=== PATIENT | female | born 1955 | race Two or more races ===

== ENCOUNTER 2024-07-16 15:02 | Emergency (ER) | payer OTHER ==
[~2024-07-16] VITALS: Ht 160 cm; Wt 82.0 kg
--- NOTE | 2024-07-16 16:12 | ED.PDOC ---
SOB-HPI HPI Comments 69 year old female accompanied by son presents to the ED with chief complaint of SOB. Patient reports that she has been experiencing a cough with associated yellow phlegm production, SOB, and chest tightness for the past 15 days along with a fever that lasted about a week. Patient relays that she has history of asthma. Patient denies any dizziness, headache, fever, chills, N/V, dysuria, hematuria, or hemoptysis. Chief Complaint: Shortness of Breath Time Seen by MD: 16:08 Primary Care Provider: none Reviewed notes: Nurses Notes, Medications, Allergies Information Source: Patient, Relative Mode of Arrival: Ambulatory Severity: Moderate Timing: Weeks Duration: Since onset Context: At Rest PE Risk Factors: None History of: Asthma Prehospital treatment: None Modifying Factors: Nothing Associated Signs and Symptoms: Fever, Cough, Chest Pain Quality: Tightness Radiation: No Radiation Location: Substernal If cough with SOB: Productive, Yellow Past Medical History PAST MEDICAL HISTORY: Asthma, CKF, DM, Gout, High Lipids, HTN Surgical History: Tubal Ligation REGULATORY SUBMISSIONS SPECIALIST History: Denies all REGULATORY SUBMISSIONS SPECIALIST Hx Family History Family History: Reviewed,noncontributory to illness Social History Smoker: Non-Smoker Alcohol: Denies ETOH Use Drugs: Denies Drug Use Lives In: Home Constitutional: reports: fever; denies: chills, diaphoresis, fatigue, malaise, sweats, weakness, others EENTM: denies: blurred vision, double vision, ear bleeding, ear discharge, ear drainage, ear pain, ear ringing, eye pain, eye redness, hearing loss, mouth pain, mouth swelling, nasal discharge, nose bleeding, nose congestion, nose pain, photophobia, tearing, throat pain, throat swelling, voice changes, others Respiratory: reports: cough, shortness of breath; denies: hemoptysis, orthopnea, SOB at rest, SOB with excertion, stridor, wheezing, others Cardiovascular: reports: chest pain; denies: dizzy spells, diaphoresis, Dyspnea on exertion, edema, irregular heart beat, left arm pain, lightheadedness, palpitations, PND, syncope, others Gastrointestinal: denies: abdomen distended, abdominal pain, blood streaked bowels, constipated, diarrhea, dysphagia, difficulty swallowing, hematemesis, melena, nausea, poor appetite, poor fluid intake, rectal bleeding, rectal pain, vomiting, others Genitourinary: denies: abnormal vagina bleeding, burning, dyspareunia, dysuria, flank pain, frequency, hematuria, incontinence, pain, , vagina discharge, urgency, others Neurological: denies: dizziness, fainting, headache, left sided numbness, left sided weakness, numbness, paresthesia, pre-existing deficit, right sided numbness, right sided weakness, seizure, speech problems, tingling, tremors, weakness, others Musculoskeletal: denies: back pain, gout, joint pain, joint swelling, muscle pain, muscle stiffness, neck pain, others Integumetry: denies: bruises, change in color, change in hair/nails, dryness, laceration, lesions, lumps, rash, wounds, others Allergic/Immunocompromised: denies: Difficulty Healing, Frequent Infections, Hives, Itching, others Hematologic/Lymphatic: denies: anemia, blood clots, easy bleeding, easy bruisin g, swollen glands, others Endocrine: denies: excessive hunger, excessive sweating, excessive thirst, excessive urination, flushing, intolerance to cold, intolerance to heat, unexplained weight gain, unexplained weight loss, others Psychiatric: denies: anxiety, bipolar disorder, depression, hopeless, panic disorder, schizophrenia, sleepless, suicidal, others All Other Systems: Reviewed and Negative Physical Exam General Appearance: Moderate Distress HEENT: Normal ENT Inspection, Pharynx Normal, TMs Normal Neck: Full Range of Motion, Non-Tender, Normal, Normal Inspection Respiratory: Accessory Muscle Use, Chest Non-Tender, Decreased Breath Sounds, Respiratory Distress, Wheezing Cardiovascular: No Edema, No JVD, No Murmur, No Gallop, Normal Peripheral Pulses, Regular Rate/Rhythm Breast Exam: Deferred Gastrointestinal: No Organomegaly, Non Tender, No Pulsatile Mass, Normal Bowel Sounds, Soft Genitalia: Deferred Pelvic: Deferred Rectal: Deferred Extremities: No calf tenderness, Normal capillary refill, Normal inspection, Normal range of motion, Non-tender, No pedal edema Musculoskeletal : Apperance: Normal Neurologic: Alert, operations welder II-XII nml as Tested, No Motor Deficits, Normal Affect, Normal Mood, No Sensory Deficits Cerebellar Function: Normal Reflexes: Normal Skin: Dry, Normal Color, Warm Lymphatic: No Adenopathy Was a procedure done? Was a procedure done?: No Differential Dx Differential Diagnosis: Asthma, Bronchitis, CHF, COPD, Pneumonia X-Ray, Labs, Meds, VS Vital Signs Date Time Temp Pulse Resp B/P (MAP) Pulse Ox O2 Delivery O2 Flow Rate FiO2 07/16/24 16:46 16 95 Room Air* 0 21 07/16/24 16:45 70 20 98 Room Air* 0 21 07/16/24 16:45 98.2 98 18 117/70 (86) 98 98.2 07/16/24 15:23 98.2 100 20 151/76 (101) 95 98.2 07/16/24 15:13 20 95 Room Air* 0 21 Lab Test 07/16/24 17:39 07/16/24 16:36 Range/Units Influenza Type A Antigen Negative Negative Influenza Type B Antigen Negative Negative SARS-CoV-2 Antigen (Rapid) Negative NEGATIVE White Blood Count 10.3 4.4-10.8 10^3/uL Red Blood Count 5.31 H 4.0-5.20 10^6/uL Hemoglobin 13.9 12.2-16.2 g/dL Hematocrit 43.3 36.0-46.0 % Mean Corpuscular Volume 81.5 80.0-100.0 fL Mean Corpuscular Hemoglobin 26.2 L 28.0-32.0 pg Mean Corpuscular Hemoglobin Concent 32.1 32.0-36.0 g/dL Red Cell Distribution Width 16.5 H 11.8-14.3 % Platelet Count 291 140-450 10^3/uL Mean Platelet Volume 9.0 6.9-10.8 fL Neutrophils (%) (Auto) 73.9 37.0-80.0 % Lymphocytes (%) (Auto) 17.0 10.0-50.0 % Monocytes (%) (Auto) 5.3 0.0-12.0 % Eosinophils (%) (Auto) 3.1 0.0-7.0 % Basophils (%) (Auto) 0.7 0.0-2.0 % Neutrophils # (Auto) 7.6 1.6-8.6 10 ^3/uL Lymphocytes # (Auto) 1.7 0.4-5.4 10 ^3/uL Monocytes # (Auto) 0.5 0-1.3 10 ^3/uL Eosinophils # (Auto) 0.3 0-0.8 10 ^3/uL Basophils # (Auto) 0.1 0-0.2 10 ^3/uL Nucleated Red Blood Cells 0.1 % Sodium Level 134 L 136-145 mmol/L Potassium Level 4.5 3.5-5.1 mmol/L Chloride Level 104 98-107 mmol/L Carbon Dioxide Level 19 L 20-31 mmol/L Anion Gap 11 5-15 Blood Urea Nitrogen 32 H 9-23 mg/dL Creatinine 2.03 H 0.550-1.02 mg/dL Glomerular Filtration Rate Calc 26 >90 mL/min BUN/Creatinine Ratio 15.8 10.0-20.0 Serum Glucose 493 *H 74-106 mg/dL Calcium Level 9.7 8.7-10.4 mg/dL B-Type Natriuretic Peptide 78.82 0-100 pg/mL Current Medications Medications (Trade) Dose Ordered Sig/Nicola Route Start Time Stop Time Status Last Admin Methylprednisolone Sodium Succinate (Solu Medrol) 125 mg ONCE ONCE IV 07/16/24 16:15 07/16/24 16:16 DC 07/16/24 16:51 Ipratropium Sidon (Atrovent Medneb) 1 mg ONCE ONCE HHN 07/16/24 16:15 07/16/24 16:16 DC 07/16/24 16:49 Albuterol (Ventolin Medneb) 20 mg ONCE ONCE N 07/16/24 16:15 07/16/24 16:16 DC 07/16/24 16:50 IV Hep-Lock was established The patient was given Solu-Medrol 125 mg IV push The patient was given a continuous breathing treatment of albuterol and Atrovent. At this time, the patient's CBC is within normal limits The chemistry panel shows a BUN of 32 and a creatinine of 2.03 The patient was hyperglycemic at 493 The patient was being given insulin 5 units IV push The patient will be admitted at this time nine we have discussed the findings with the patient and they are in agreement with the management The COVID test was negative The influenza a and influenza B are also negative The chest x-ray shows: IMPRESSION: 1. 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 If more imaging is required I would recommend CT examination of the chest This at this time the patient was being admitted Images Reviewed?: Images reviewed and evaluated by me Time of 1ST Reevaluation: 18:46 Reevaluation 1ST: Unchanged Patient Education/Counseling: Diagnosis, Treatment, Prognosis Family Education/Counseling: Diagnosis, Treatment, Prognosis Additional Information -Reviewed patient's previous visit(s): None - The following tests were ordered, and results were reviewed by me: CBC, BMP, CXR - Additional information was gathered from interviewing the following independent Historian: Son - I reviewed and agreed with the following test results read by other provider: CXR - I discussed treatments and results with medical personnel and: patient and son Comprehensive systems review obtained and negative except for what is stated in the HPI. Departure 1 Departure Time of Disposition: 18:45 Impression: Primary Impression: Acute respiratory failure Qualified Codes: J96.01 - Acute respiratory failure with hypoxia Additional Impressions: Status asthmaticus Qualified Codes: J45.42 - Moderate persistent asthma with status asthmaticus Hyperglycemia Disposition: 09 ADMITTED INPATIENT Admit to: Tele Condition: Fair Critical Care Note Critical Care Time?: Yes (35 min-critical care time only) Stability Stability form required: Yes Unstable for transfer: Telemetry monitoring (Telemetry monitoring required), ED Physician Assesment (Clinical assesment) Heart Score Heart Score: Heart Score Response (Comments) Value History N/A 0 EKG N/A 0 Age N/A 0 Risk Factors N/A 0 Troponin N/A 0 Total 0 I personally scribed for CHARLES VINES MD ([email or web address]) on 07/16/24 at 16:12. Electronically submitted by Mekhi Jones ([email or web address]). CHARLES VINES MD Jul 16, 2024 16:12
--- NOTE | 2024-07-16 16:40 | DVH ---
XY CHEST TWO VIEWS ROUTINE CLINICAL HISTORY: sob COMPARISON: None TECHNIQUE: Frontal and lateral view of the chest was obtained FINDINGS: There is calcification of the anterior longitudinal ligament along with osteophytes involvi ng the thoracolumbar spine. There is a 14 degree dextrocurvature thoracic spine. Lung markings suggesting chronic changes in the may be calcified granulomas in the torey bilaterally. There are no infiltrates or effusions. Heart size is within normal limits trachea is midline. Analia sharp in the mainstem bronchi are well aerated. IMPRESSION: 1. 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 If more imaging is required I would recommend CT examination of the chest
[2024-07-16 16:45] VITALS: BP 117/70; PULSE 70; RESP 20; TEMP 98.2; O2SAT 98
[2024-07-16 16:46] VITALS: RESP 16; O2SAT 95
[2024-07-16] MEDS: IPRATROPIUM BROM 0.5 MG/2.5ML INH SOL HHN ONE (16:49)
[2024-07-16] MEDS: ALBUTEROL SULF 2.5 MG/0.5ML(0.5%) NEB SOLN HHN ONE (16:50)
[2024-07-16] MEDS: methylPREDNISolone SOD SUCC 125 MG/2 ML VL IV ONE (16:51)
[2024-07-16 16:58] LABS: Eosinophils # (auto) 0.3 10 ^3/uL (0-0.8); Hemoglobin 13.9 g/dL (12.2-16.2); Lymphocytes # (auto) 1.7 10 ^3/uL (0.4-5.4)
[2024-07-16 17:00] LABS: Basophils # (auto) 0.1 10 ^3/uL (0-0.2); Basophils % (auto) 0.7 % (0.0-2.0); Eosinophils % (auto) 3.1 % (0.0-7.0); Hematocrit 43.3 % (36.0-46.0); Mean Corpuscular Hemoglobin 26.2 pg (28.0-32.0); Mean Corpuscular Hgb Conc. 32.1 g/dL (32.0-36.0); Mean Corpuscular Volume 81.5 fL (80.0-100.0); Monocytes # (auto) 0.5 10 ^3/uL (0-1.3); Monocytes % (auto) 5.3 % (0.0-12.0); Neutrophils # (auto) 7.6 10 ^3/uL (1.6-8.6); Neutrophils % (auto) 73.9 % (37.0-80.0); Nucleated Red Blood Cells % 0.1 %; Platelet Count (auto) 291 10^3/uL (140-450); Red Blood Cells 5.31 10^6/uL (4.0-5.20); Red Cell Distribution Width 16.5 % (11.8-14.3); White Blood Cell 10.3 10^3/uL (4.4-10.8)
[2024-07-16 17:07] LABS: Chloride 104 mmol/L (98-107); Potassium 4.5 mmol/L (3.5-5.1)
[2024-07-16 17:08] LABS: Anion Gap 11 (5-15); Calcium 9.7 mg/dL (8.7-10.4)
[2024-07-16 17:13] LABS: BUN/Creatinine Ratio 15.8 (10.0-20.0)
[2024-07-16 17:19] LABS: Blood Urea Nitrogen 32 mg/dL (9-23); Carbon Dioxide 19 mmol/L (20-31); Sodium 134 mmol/L (136-145)
[2024-07-16 17:20] LABS: Glucose 493 mg/dL (74-106)
[2024-07-16 18:40] LABS: COVID19 ANTIGEN SOFIA FIA NEGATIVE (NEGATIVE); Rapid Influenza A Negative (Negative); Rapid Influenza B Negative (Negative)
== END 2024-07-16 20:00 | disposition left against medical advice (07) ==
LOC: ER 15:02
DX: J96.00 Acute respiratory failure, unspecified whether with hypoxia or hypercapnia (principal); J45.902 Unspecified asthma with status asthmaticus; I12.9 Hypertensive chronic kidney disease with stage 1 through stage 4 chronic kidney disease, or unspecified chronic kidney disease; E11.22 Type 2 diabetes mellitus with diabetic chronic kidney disease; N18.9 Chronic kidney disease, unspecified; Z20.822 Contact with and (suspected) exposure to COVID-19; Z98.51 Tubal ligation status
CPT/HCPCS: 36415; 71046; 80048; 83880; 85025; 87426; 87804; 94644; 96374; 99291; J2919